=== PATIENT | male | born 1980 | race Caucasian/White ===

== ENCOUNTER 2017-09-02 09:29 | Emergency (ER) | payer OTHER ==
[2017-09-02] MEDS: ACETAMINOPHEN 325 MG TAB PO (09:47)
== END 2017-09-02 11:03 | disposition home or self-care (01) ==
LOC: FTE 09:29
DX: S80.212A Abrasion, left knee, initial encounter (principal); S42.202A Unspecified fracture of upper end of left humerus, initial encounter for closed fracture; I10 Essential (primary) hypertension; V00.131A Fall from skateboard, initial encounter; Y92.9 Unspecified place or not applicable
CPT/HCPCS: 73030; 99283-25

== ENCOUNTER 2018-08-22 20:57 | Emergency (ER) | payer OTHER ==
[2018-08-22 23:23] LABS: URINE BLOOD (Dip) POC 2+ (NEGATIVE); URINE GLUCOSE (Dip) POC Negative (NEGATIVE); URINE KETONES (Dip) POC Negative (NEGATIVE); URINE LEUKOCYTE EST (Dip) POC Negative (NEGATIVE); URINE NITRITE (Dip) POC Negative (NEGATIVE); URINE TOTAL PROTEIN POC Negative (NEGATIVE)
== END 2018-08-23 00:08 | disposition home or self-care (01) ==
LOC: E/R 08-23 00:08
DX: R30.0 Dysuria (principal); I10 Essential (primary) hypertension; E11.9 Type 2 diabetes mellitus without complications
CPT/HCPCS: 81003; 99283